=== PATIENT | male | born 1980 | race Caucasian/White ===

== ENCOUNTER → 2018-07-31 | Outpatient (CLI) | payer BC ==
[2018-07-31 15:36] LABS: HEMOGLOBIN 17.4 G/DL (13.3-17.7); MEAN PLATELET VOLUME 10.6 FL (7.4-10.4); RED CELL DISTRIBUTION WIDTH 12.7 % (10.0-14.5); WHITE BLOOD COUNT 12.3 10^3/uL (4.3-11.0)
[2018-07-31 16:07] LABS: ALANINE AMINOTRANSFERASE 70 U/L (0-55); ALBUMIN 4.9 GM/DL (3.2-4.5); ALKALINE PHOSPHATASE 97 U/L (40-136); BILIRUBIN,TOTAL 0.4 MG/DL (0.1-1.0); BUN/CREATININE RATIO 13; CALCIUM 9.4 MG/DL (8.5-10.1); CARBON DIOXIDE 22 MMOL/L (21-32); CHLORIDE 100 MMOL/L (98-107); CREATININE SERUM 0.97 MG/DL (0.60-1.30); GFR ESTIMATED > 60; GLUCOSE 83 MG/DL (70-105); SODIUM 139 MMOL/L (135-145)
== END ==
LOC: LAB FS 15:04
PROVIDERS: ATTEND Orthopaedic Surgery Orthopaedic Surgery of the Spine
DX: M54.9 Dorsalgia, unspecified (principal)
CPT/HCPCS: 36415; 80053; 85027; 85652; 86038; 86430; 86812

== ENCOUNTER 2019-07-12 07:05 | Outpatient (RCR) | payer BC ==
[~2019-07-12] VITALS: Ht 188 cm; Wt 132.3 kg
[2019-07-12] MEDS ORDERED: LANS15CA5 PO (11:24)
[2019-07-12] MEDS ORDERED: MTP25TSR PO (11:24)
[2019-07-12] MEDS ORDERED: MONT10TA26 PO (11:24)
[2019-07-12] MEDS ORDERED: CETI10TA17 PO (11:24)
[2019-07-12] MEDS ORDERED: BACL20TA PO (11:24)
[2019-07-12] MEDS ORDERED: BUPR150T7 PO (11:24)
[2019-07-12] MEDS ORDERED: IBUP-1780 PO (11:24)
== END 2019-07-12 13:33 | disposition home or self-care (01) ==
LOC: PREOP 07:05 → EDSTATUS 15:15
PROVIDERS: ATTEND Surgery
DX: Z01.818 Encounter for other preprocedural examination (principal)

== ENCOUNTER → 2019-07-13 | Outpatient (CLI) | payer BC ==
[~2019-07-13] MED LIST: BACL20TA PO; BUPR150T7 PO; CETI10TA17 PO; IBUP-1780 PO; LANS15CA5 PO; MONT10TA26 PO; MTP25TSR PO
== END ==
LOC: LAB FS 10:10
PROVIDERS: ATTEND Surgery
DX: Z11.59 Encounter for screening for other viral diseases (principal); R10.12 Left upper quadrant pain; Z80.0 Family history of malignant neoplasm of digestive organs
CPT/HCPCS: 87635

== ENCOUNTER → 2021-05-04 | Outpatient (CLI) | payer BC ==
[~2021-05-04] MED LIST changes: +BUPR150T24 PO; -BUPR150T7 PO; +MONT-40 PO; -MONT10TA26 PO
== END ==
LOC: CARD 10:00
PROVIDERS: ATTEND Family Medicine
DX: I10 Essential (primary) hypertension (principal)
CPT/HCPCS: 93306

== ENCOUNTER 2021-08-26 06:47 | Outpatient (CLI) | payer BC ==
[~2021-08-26] VITALS: Ht 188 cm; Wt 143.0 kg
[2021-08-26] MEDS ORDERED: LORA10TA7 PO (11:38)
[2021-08-26] MEDS ORDERED: ATOR10TA66 PO (11:38)
[2021-08-26] MEDS ORDERED: FURO40TA4 PO (11:38)
[2021-08-26] MEDS ORDERED: GBPN600T PO (11:38)
[2021-08-26] MEDS ORDERED: VORT20TA PO (11:38)
[2021-08-26] MEDS ORDERED: GUAI600T43 PO (11:38)
[2021-08-26] MEDS ORDERED: PANT40TA52 PO (11:38)
== END 2021-08-26 11:40 | disposition home or self-care (01) ==
LOC: PREOP 06:47
PROVIDERS: ATTEND Surgery
DX: Z01.818 Encounter for other preprocedural examination (principal)

== ENCOUNTER 2021-09-08 09:06 | Day surgery (SDC) | payer BC ==
[~2021-09-08] VITALS: Ht 187 cm; Wt 143.0 kg
[~2021-09-08 09:06] MED LIST changes: +ATOR10TA66 PO; +FURO40TA4 PO; +GBPN600T PO; +GUAI600T43 PO; +LORA10TA7 PO; +PANT40TA52 PO; +VORT20TA PO
[2021-09-08] MEDS ORDERED: LACTATED RINGERS 1,000 ML IV STA (09:09)
[2021-09-08] MEDS ORDERED: HURRICAINE EXT TUBE (BENZOCAINE) XX PRN (09:15)
[2021-09-08 09:20] VITALS: BP 151/105
--- NOTE | 2021-09-08 09:44 | Progress Note-Pre Operative ---
Pre-Operative Progress Note H&P Reviewed The H&P was reviewed, patient examined and no changes noted. Time Seen by Provider: 09:42 Date H&P Reviewed: Sep 08, 2021 Time H&P Reviewed: 09:42 Pre-Operative Diagnosis: Hx of Garvin's GUSTAVO MENDOZA DO Sep 08, 2021 09:44
[2021-09-08] MEDS ORDERED: MIDAZOLAM 2 MG/2 ML (VERSED) VIAL ONE (10:55)
[2021-09-08] MEDS ORDERED: PROPOFOL INJECTION 50 ML IV ONE (10:55)
[2021-09-08] MEDS ORDERED: KETAMINE 50 MG/5 ML SYRINGE ONE (10:55)
--- NOTE | 2021-09-08 11:17 | Progress Note-Post Operative ---
Post-Operative Progess Note Surgeon (s)/Black Studies Professor (s) Surgeon GUSTAVO MENDOZA DO Black Studies Professor: none Pre-Operative Diagnosis Hx of Garvin's Post-Operative Diagnosis Gastric Ulcer Esophagitis Hiatal hernia Procedure & Operative Findings Date of Procedure 09/08/21 Procedure Performed/Findings EGD with bx PROCEDURE NOTE: After informed consent was obtained, the patient was brought to the endoscopy suite, placed in bed in left lateral decubitus position. He was administered IV sedation by the AUT[employer]BI[employer] STRAIGHTENER who then monitored vitals the entire time, heart rate, blood pressure and pulse ox and the scope was inserted down the mouth through the esophagus into the stomach. On the way down, noted some mild esophagitis, took a picture, pushed into the stomach, pushed past the antrum into the duodenum. Duodenum looked good. Pulled back and noted a large ulcer in the antrum and did a biopsy of this ulcer. Next, retroflexed the scope and saw a small 0.5 - 1cm hiatal hernia. Took a picture of this and then pulled the scope into the GE junction and then did three biopsies of the GE junction. Pushed the scope back into the stomach, suctioned all the air out of the stomach. At this point pulled the scope up the esophagus and out the mouth. The patient tolerated the procedure, and he recovered in endoscopy suite. Anesthesia Type IV sedation by [employer]BI[employer] STRAIGHTENER Estimated Blood Loss Estimated blood loss (mL): scant Specimens/Packing Specimens Removed antral bx - ulcer GE GUSTAVO Galaviz DO Sep 08, 2021 11:17
[2021-09-08 11:18] VITALS: BP 125/74
--- NOTE | 2021-09-08 11:19 | Endoscopy Discharge Instruct ---
Endo Procedure/Findings Findings 1.: Gastric Ulcer 2.: Hiatal Hernia 3.: Other Findings (esophagitis) Discharge Instructions - Activity: You might feel a little sleepy until tomorrow. This is due to the medicine you received to relax you. Until tomorrow, you should: NOT drive a car, operate machinery or power tools. NOT drink any alcoholic beverages. NOT make any important decisions or sign importortant papers. Do not return to work until tomorrow, unless otherwise instructed. Resume previous activities tomorrow. Diet: Start by taking liquids. If you tolerate liquids, advance to solid food. 1.: EGD in 6-8 weeks Notify Physician - If you experience excessive bleeding, unusual abdominal pain, fever, or chest pain, contact your doctor immediately. GUSTAVO MENDOZA DO Sep 08, 2021 11:19
[2021-09-08 11:20] VITALS: BP 131/78
[2021-09-08 11:56] VITALS: BP 131/78
--- NOTE | 2021-09-08 12:04 | Anesthesia-General Post-Op ---
MAC Patient Condition Mental Status/LOC: Same as Preop Cardiovascular: Satisfactory Nausea/Vomiting: Absent Respiratory: Satisfactory Pain: Controlled Complications: Absent Post Op Complications Complications None Follow Up Care/Instructions Patient Instructions None needed. Anesthesiology Discharge Order Discharge Order Patient is doing well, no complaints, stable vital signs, no apparent adverse anesthesia problems. No complications reported per nursing. DARIUSZ VILLEDA CRNA Sep 08, 2021 12:04
== END 2021-09-08 12:03 | disposition home or self-care (01) ==
LOC: ENDO 09:06
PROVIDERS: ATTEND Surgery
DX: K25.9 Gastric ulcer, unspecified as acute or chronic, without hemorrhage or perforation (principal); K44.9 Diaphragmatic hernia without obstruction or gangrene; K21.00 Gastro-esophageal reflux disease with esophagitis, without bleeding; F17.210 Nicotine dependence, cigarettes, uncomplicated; Z87.19 Personal history of other diseases of the digestive system; E66.9 Obesity, unspecified; Z68.41 Body mass index [BMI] 40.0-44.9, adult
CPT/HCPCS: 88305